=== PATIENT | female | born 1990 | race Caucasian/White ===

== ENCOUNTER → 2018-04-29 22:39 | Observation (INO) ==
--- NOTE | 2018-04-29 22:30 | OB/GYN Progress Note ---
Date of Encounter: 04/29/18 Time of Encounter: 22:28 - Assessment and Plan (1) 36 weeks gestation of Current Visit: Yes Status: Acute (2) Encounter for suspected PROM, with rupture of membranes not found Current Visit: Yes Status: Acute Speculum exam shows normal thick white/yellow discharge of . Ferning negative. Cervical exam unchanged from office exam. Patient discharged home with labor and when to return to triage precautions. Patient verbalizes understanding and is in agreement with plan Subjective - Subjective Interval history: 36+2 weeks gestation presents to triage triage with complaints of losing her mucous plug and a small amount of leaking of fluid, complains of contractions yesterday with some pelvic pressure today. Reports good movement, slight vaginal bleeding with loss of mucous plug no other heavy vaginal bleeding noted. Antepartum ROS: loss of fluid, vaginal bleeding, movement normal, contractions Objective - Vital Signs Vital Signs: Intake and Output 04/29/18 04/29/18 04/29/18 07:59 15:59 23:59 Other: Weight 78.018 kg Patient Weight 04/29/18 23:59 Weight 78.018 kg - Exam FHR: auscultation normal FHR comments: Baseline 130 Abdomen: Present: soft, gravid Cervical dilation: 250/-3
== END | disposition home or self-care (01) ==
LOC: 1NENULAB
PROVIDERS: ADMIT Advanced Practice Midwife; ATTEND Advanced Practice Midwife

== ENCOUNTER 2018-05-18 06:00 | Inpatient (IN) ==
[2018-05-18] MEDS ORDERED: *HR* Nalbuphine 10 MG/ML AMPUL IVP PRN (06:57)
[2018-05-18] MEDS ORDERED: Metoclopramide 10 MG/2 ML VIAL IVP PRN ×2 (06:57→18:46)
[2018-05-18] MEDS ORDERED: Famotidine 20 MG/2 ML VIAL IVP PRN (06:57)
[2018-05-18] MEDS ORDERED: Ondansetron 4 MG/2 ML VIAL IVP PRN ×2 (06:57→18:46)
[2018-05-18] MEDS ORDERED: Naloxone 0.4 MG/ML INJ IVP PRN (06:57)
[2018-05-18] MEDS ORDERED: Ringers Solution, Lactated 1,000 ML IVC SCH (07:00)
[2018-05-18] MEDS ORDERED: miSOPROStol 25 MCG TABLET VG PRN (07:02)
[2018-05-18] MEDS ORDERED: D5% in 0.45% NACL 1,000 ML IVC SCH (07:30)
[2018-05-18 07:45] LABS: Basophils % 0.4 %; Eosinophils # 0.4 K/mcL (0.0-0.6); Eosinophils % 4.4 %; Hematocrit 30.6 % (35.3-44.9); Hemoglobin 9.7 g/dL (11.5-15.4); Immature Granulocytes % 0.4 % (0-4); Lymphocytes # 2.1 K/mcL (0.6-4.6); Lymphocytes % 24.8 %; Mean Corpuscular HGB Conc 31.7 g/dL (31.6-35.5); Mean Corpuscular Hemoglobin 25.9 pg (28.0-33.3); Mean Corpuscular Volume 81.6 fL (83.0-100.0); Mean Platelet Volume 12.5 fL (9.4-12.4); Monocytes # 0.6 K/mcL (0.0-1.3); Monocytes % 6.8 %; Neutrophils # 5.3 K/mcL (1.6-8.9); Platelet Count 213 K/mcL (140-400); Red Blood Count 3.75 M/mcL (3.82-4.97); Red Cell Distribution Width 17.2 % (11.5-14.5); Segmented Neutrophils % 63.2 %
[2018-05-18 07:53] LABS: Amphetamine Screen,Urine Negative ng/mL (Cutoff=1000); Barbiturate Screen,Urine Negative ng/mL (Cutoff=200); Benzodiazepines Screen,Urine Negative ng/mL (Cutoff=200); Cannabinoid Screen,Urine Negative ng/mL (Cutoff = 50); Cocaine Screen,Urine Negative ng/mL (Cutoff= 300); Opiate Screen,Urine Negative ng/mL (Cutoff=300); Phencyclidine Screen,Urine Negative ng/mL (Cutoff=25)
--- NOTE | 2018-05-18 10:44 | Anesthesia Evaluation PreOp ---
Date of Encounter: 05/18/18 Time of Encounter: 08:12 - Past History Planned Operation: raiza Cardiac History: Denies any Significant Hx Pulmonary History: Denies Any Significant HX SMALL ENGINE TECHNICIAN History: Denies Any Significant HX Other Medical History: Other (Chronic anemia) Anesthesia History: No Prior Anesthetic Complications, Past Anesthesia : Yes (39 weeks, ) Alcohol Use: none Drug use: none Medications and Allergies Ferrous Sulfate 1 tab PO DAILY 02/15/18 [History] One Tablet 1 tab PO DAILY 02/15/18 [History] Folic Acid 1 tab PO DAILY 04/29/18 [History] Allergy/AdvReac Type Severity Reaction Status Date / Time Amoxicillin Allergy Rash Verified 02/15/18 23:14 Penicillins Allergy Rash Verified 02/15/18 23:14 - Meds/Allergy Pre-op Review Medications Reviewed: Yes Allergies Reviewed: Yes Beta Blockers on Current Med List: No Anesthesia Results - Labs 05/18/18 06:30 Anesthesia Exam O2 Sat Height 1.75 m Weight 79.7 kg Height: 69 Weight: 175 - HEENT Pupil (Motor): Pupils equal Mallampati: I Teeth: Normal Oral Opening: Greater than 3 - SMALL ENGINE TECHNICIAN LOC: Oriented SMALL ENGINE TECHNICIAN Motor: Normal RUE, Normal LUE, Normal RLE, Normal LLE, Normal Face SMALL ENGINE TECHNICIAN Sensory: Normal: RUE, LUE, RLE, LLE, Face - Cardiac Rhythm: Regular Murmur: None JVD: No Carotid Bruit: No - Pulmonary Breath Sounds: bilateral Clear Respiratory Effort: Symmetrical Anesthesia Assess/Plan ASA Score: 2 Modified [place] Scale for Level of Consciousness: Cooperative, oriented, and tranquil Anesthetic Plan: Regional Monitoring Plan: Standard Monitors
--- NOTE | 2018-05-18 10:48 | OB/GYN History & Physical ---
Date of Encounter: 05/18/18 Time of Encounter: 08:52 Assessment and Plan (1) 39 weeks gestation of Current visit: Yes Status: Acute Plan for induction of labor with cytotec NST reactive, FHR 140 bpm, moderate variablilty, no decelerations (2) Iron deficiency anemia during Current visit: Yes Status: Acute History of chronic iron deficiency anemia, baseline hgb 9-10 Hgb currently 9.7 Maternal blood type A+ Denies dizziness, weakness, presyncope, syncope History of Present Illness Chief complaint: Induction of Labor HPI: Ms. Diaz is a 27 year old female presenting for induction of labor at 39 weeks gestation with vertex presentation. Previous pregnancies resulted in term vaginal deliveries. First born has glutaric acidemia type 1, mom and father of that child are both PKU carriers, different father for the subsequent pregnancies. complicated by iron deficiency anemia on ferrous sulfate and former tobacco use. Mom denies headache, dizziness, vision changes, vagina l bleeding, rupture of membranes. Admits to occasional contractions and loss of mucus plug. Admits good movement. Maternal blood type A+ GBS negative HIV negative Treponema negative G/C negative Rubella, varicella immune Past Med Surg Social Fam HX - Past Medical History Source: patient Additional medical history: iron deficiency anemia. previous post hemorrhage Psychiatric history: no psych history - Past Surgical History Surgical History: non-contributory (tonsillectomy) - Social History Smoking Status: Former smoker Smokeless Tobacco Status: No Alcohol use: none Drug use: none Occupational status: employed Current living situation: Home - Independent Activity Level: Very active Recent Out of Country Travel Within the Last 8 Weeks: No Exposure or Possible Exposure to Illness During Travel: No - Family History Mother Living Status: Still Living Hx Family Cardiac Disorders: Yes (htn) Hx Family Respiratory Disorders: No Hx Family Cancer: No Hx Family GI Disorders: No Hx Family Endocrine Disorder: No Hx Family Neuromuscular Disorders: No Hx Family Neurologic Disorders: No Hx Family HEENT Disorders: No Hx Family Autoimmune Disorders: No Hx Family Medical Disorders: Yes (son has glutaric acidemia type 1) Obstetrical History - Pregnancies : 4 Para: 3 Term: 3 : 0 Ab's: 0 Livin - History/Complications History/Complications: Iron deficiency anemia Medications and Allergies Ferrous Sulfate 1 tab PO DAILY 02/15/18 [History] One Tablet 1 tab PO DAILY 02/15/18 [History] Folic Acid 1 tab PO DAILY 04/29/18 [History] Allergy/AdvReac Type Severity Reaction Status Date / Time Amoxicillin Allergy Rash Verified 02/15/18 23:14 Penicillins Allergy Rash Verified 02/15/18 23:14 Review of System OB All systems PM: reviewed and no additional remarkable complaints except as stated Exam - Constitutional Constitutional: well developed, well nourished, no acute distress - HEENT HEENT: Normocephaly, Mucus Membranes Moist - Neck Neck exam: full ROM - Lungs Respiratory exam: CTAB - Cardiovascular Cardiovascular exam: RRR, +S1, +S2 - Abdomen Abdomen: Present: bowel sounds normal, gravid, non tender - Extremities Extremities exam: full ROM, normal capillary refill, normal inspection, radial pulses palpable and symmetrical (trace edema) Deep Tendon Reflex Grade: 2+ Normal - Vagina Vagina: Present: normal moisture ( ) - Cervix Dilation: 4 Effacement: 60 Station: -1 Results Result Diagrams: 05/18/18 06:30 Abnormal lab results RBC 3.75 M/mcL (3.82-4.97) L 05/18/18 06:30 Hgb 9.7 g/dL (11.5-15.4) L 05/18/18 06:30 Hct 30.6 % (35.3-44.9) L 05/18/18 06:30 MCV 81.6 fL (83.0-100.0) L 05/18/18 06:30 MCH 25.9 pg (28.0-33.3) L 05/18/18 06:30 RDW 17.2 % (11.5-14.5) H 05/18/18 06:30 MPV 12.5 fL (9.4-12.4) H 05/18/18 06:30 All other labs normal.
[2018-05-18] MEDS ORDERED: *HR* FentaNYL (PF) 100 MCG/2 ML VIAL ONE ×2 (10:56→14:15)
[2018-05-18] MEDS ORDERED: Epidural Premix (fent/bupiv) 110 ML EP ONE (10:56)
[2018-05-18] MEDS ORDERED: Bupivacaine-MPF 0.25% 10 ML VIAL ONE (10:57)
[2018-05-18] MEDS ORDERED: Lidocaine 1% 20 ML MDV ONE (10:57)
[2018-05-18] MEDS ORDERED: Bupivacaine-MPF 0.25% 10 ML VIAL EP ONE (11:20)
[2018-05-18] MEDS ORDERED: EPHEDrine 50 MG/ML VIAL IVP PRN (11:20)
[2018-05-18] MEDS ORDERED: *HR* FentaNYL (PF) 100 MCG/2 ML VIAL EP ONE (11:20)
--- NOTE | 2018-05-18 11:23 | Anesthesia Procedures ---
Addendum entered and electronically signed by Tucker Smith CRNA 05/18/18 11:24: epidural end time 1110 Original Note: Date of Encounter: 05/18/18 Time of Encounter: 11:22 Procedures: Anesthesia - Epidural/Spinal Patient ID/Chart reviewed: Yes Patient examined: Yes OB Eval: : 4 OB Eval: Hx Para: 3 OB Eval: Contractions: Non-stressed pattern Consent Obtained: Yes Supplemental Oxygen: None/Room Air Site Prep: Aseptic Technique Patient position: upright Local Anesthetic: Lidocaine 1% Amount of Local Anesthetic used: 3 Touhy Needle Gauge: 18 Touhy Needle Depth (cm): 4 Catheter Depth at Skin (cm): 12 Test Dose (1.5% Lido + Epi): Volume given (mls): 3 Test Dose Result: Negative Loading Dose: 0.25% Marcaine (mls): 7 Loading Dose: Fentanyl (mcg): 100 Loading Dose Administered: Thru Touhy Needle Infusion Med: 0.125% Bupivacaine w/ 2 mcg/ml Fentanyl Infusion Rate (mls/hr): [address]: Tegaderm Interspace Used: L3-L4 Loss of Resistance (TAMMIE): Yes Blood: No CSF: No Paresthesia: No
[2018-05-18] MEDS ORDERED: Epidural Premix (fent/bupiv) 110 ML EP SCH (11:30)
[2018-05-18] MEDS ORDERED: *HR* Propofol 200 MG/20 ML VIAL IVP ONE (14:14)
[2018-05-18] MEDS ORDERED: *HR* Phenylephrine 10 MG/ML VIAL ONE (14:15)
[2018-05-18] MEDS ORDERED: *HR* Morphine Sulfate/PF 10 MG/10 ML AMPUL ONE (14:18)
[2018-05-18] MEDS ORDERED: Clindamycin 900 MG/50 ML 900 MG/50 ML IV.SOLN IVPB ONE (14:19)
[2018-05-18] MEDS ORDERED: Ringers Solution, Lactated 1,000 ML ONE (14:20)
[2018-05-18] MEDS ORDERED: *HR* Oxytocin 10 UNIT/ML VIAL IM ONE (14:22)
[2018-05-18] MEDS ORDERED: Ketorolac 30 MG/ML VIAL IVP ONE (14:39)
--- NOTE | 2018-05-18 14:58 | Event Note ---
Date of Encounter: 05/18/18 Time of Encounter: 14:00 CNM entered patient room to AROM patient. Risks and benefits were discussed and patient verbally consented to AROM. Immediately after AROM with clear fluid, umbilical cord was felt around head. RN notified to call Dr. Stone for stat section. Dr. Stone immediately at bedside and care turned over at that time.
[2018-05-18] MEDS ORDERED: Oxytocin 20 units/ LR 1000 mL 20 UNIT/1,000 ML BAG IVC ONE ×2 (15:13→17:47)
--- NOTE | 2018-05-18 15:23 | OB/GYN Procedure Note ---
Addendum entered and electronically signed by Lu Briseno 05/19/18 08:54: Original Note: Section - Date of procedure: 05/18/18 Preop diagnosis: category 3 FHT tracing, other (cord prolapse) Post-op diagnosis: same Procedure: primary low transverse Surgeon: Wilner Garcia Blood Loss: 400 Was there an public aid eligibility assistant present: No Anesthesiologist: Ayanna España Anesthesia Type: Epidural section complications: none Disposition: PACU Specimens: Placenta - (s) A Delivery Date: 05/18/18 Infant Delivery Time: 14:16 Presentation: vertex Gender: Male Viability: Viable Pounds: 6 Ounces: 12 at 1 minute: 8 at 5 minutes: 9 Specimens collected: cord blood Placenta: complete extraction Cord: nuchal cord - Narrative Narrative: Upon AROM, compound presentation with hand and cord were noted. Patient was taken immediately to the operating room. She was prepped and draped in usual manner. After satisfactory anesthesia was achieved, the abdomen was entered through standard Maylard incision. The Luba retractor was placed. Peritoneum overlying the lower uterine segment was incised in U-shaped fashion. Uterine cavity was entered sharply. With fundal pressure the head was delivered. The torso was delivered the umbilical cord doubly clamped and cut and the was handed to nursery staff for further evaluation. Placenta was removed. Uterus closed with 0 Monocryl. After assurance assurance of hemostasis the retractor was removed. X-ray was obtained which excluded any instruments, needles, or laps or Ray-Jorge's. After assurance hemostasis, the abdomen was closed standard fashion using 0 PDS on the fascia and 3-0 Monocryl skin. Sterile dressing was applied. Patient did well was taken to recovery in satisfactory condition. Counts were correct.
[2018-05-18] MEDS ORDERED: *HR* HYDROmorphone (PF) 1 MG/ML SYRINGE IM ONE (15:58)
[2018-05-18] MEDS ORDERED: *HR* HYDROmorphone (PF) 1 MG/ML SYRINGE IVP ONE (17:33)
[2018-05-18] MEDS ORDERED: *HR* OxyCODONE/APAP 5/325 TABLET PO PRN (18:46)
[2018-05-18] MEDS ORDERED: Sennosides 8.6 MG TABLET PO PRN (18:46)
[2018-05-18] MEDS ORDERED: Oxytocin 20 units/ LR 1000 mL 20 UNIT/1,000 ML BAG IVC SCH (18:46)
[2018-05-18] MEDS: Ibuprofen 600 MG TABLET PO PRN (19:01)
--- NOTE | 2018-05-18 19:48 | Anesthesia Evaluation Post Op ---
Date of Encounter: 05/18/18 Time of Encounter: 18:05 - Vital Signs Vital Signs: Vital Signs/O2 Sat, Most Current Temp Pulse Resp BP Pulse Ox 97.8 F 78 16 117/72 96 05/18/18 18:50 05/18/18 18:50 05/18/18 18:50 05/18/18 18:50 05/18/18 18:50 - Lungs Lungs: Clear Ascult./Percussion - Airway Airway: Non-obstructed - Cardiovascular Regular Rate - Mental Status Mental Status: Alert & Oriented, Answers Appropriately - Pain Pain Scale: 2 (2 at rest, 8 when fundus is massaged) - Nausea Vomiting Nausea Vomiting: Not Present - Hydration Hydration: Ice chips, Xiong catheter
[2018-05-18] MEDS: Clindamycin 300 MG in D5% in Water 50 ML IVPB SCH (20:54)
[2018-05-19] MEDS: Clindamycin 300 MG in D5% in Water 50 ML IVPB SCH ×2 (01:36→08:18)
[2018-05-19] MEDS: Ibuprofen 600 MG TABLET PO PRN ×4 (01:54→23:38)
[2018-05-19] MEDS: Prenatal Vit/FA 1 EACH TABLET PO SCH (08:20)
[2018-05-19] MEDS: Folic Acid 1 MG TABLET PO SCH (08:20)
[2018-05-19] MEDS ORDERED: NON-FORMULARY MEDICATION 1 EACH EACH (Prenatal One Tablet 1 TAB) PO SCH (09:00)
[2018-05-19] MEDS ORDERED: NON-FORMULARY MEDICATION 1 EACH EACH (Ferrous Sulfate 1 TAB) PO SCH (09:00)
--- NOTE | 2018-05-19 09:01 | OB/GYN Progress Note ---
Date of Encounter: 05/19/18 Time of Encounter: 08:58 - Assessment and Plan (1) Status post delivery Current Visit: Yes Status: Acute Continue routine post-op/ care Anticipate discharge home tomorrow (2) Anemia complicating the puerperium Current Visit: Yes Status: Acute Subjective - Subjective Principal diagnosis: Primary C/S Interval history: S/P Primary C/S Day 1 VSS Pain well controlled Lochia light and without clots Voiding without difficulty Tolerating regular diet and passing flatus Bottle feeding without difficulty Discharge home tomorrow Patient reports: appetite normal, voiding normally, pain well controlled, ambulating normally Worth: doing well, bottle feeding Objective - Vital Signs Latest vital signs: Vital Signs Temp Pulse Resp BP Pulse Ox 05/19/18 05:45 98.1 F 67 16 100/67 97 05/18/18 22:45 98.3 F 70 14 115/72 98 05/18/18 21:45 98.3 F 77 16 110/66 98 05/18/18 20:45 98.3 F 65 16 113/70 98 05/18/18 20:15 97.7 F 70 16 112/73 97 05/18/18 19:45 97.6 F 62 16 122/72 97 05/18/18 18:50 97.8 F 78 16 117/72 96 Intake and Output 05/18/18 05/19/18 05/19/18 23:59 07:59 15:59 Intake Total 52 / 52 Output Total 1974 750 / 750 Balance -1923 / -1923 -698 / -698 Intake: IV Fluids 52 / 52 Cleocin 300 MG In Dextrose 5% / 52 50 ML @ 50 mls/hr IVPB Q8HR [facility] Rx#:[id number] Output: Urine 100 / 100 Catheter 1974 650 / 650 Other: Weight 79 kg 76.521 kg Patient Weight 05/19/18 23:59 Weight 76.521 kg - Exam Lungs: bilateral: normal Chest: Normal S1, Normal S2 Extremities: Present: normal Abdomen: Present: soft, gravid Incision: Present: normal, dry, intact Uterus: Present: normal, firm Fundal Height: 0 (@U) - Labs Labs: Laboratory Results - last 24 hr 05/18/18 07:15 Hep Bs Antigen Nonreactive
[2018-05-19] MEDS: Simethicone 80 MG TAB.CHEW PO PRN ×3 (10:03→23:38)
[2018-05-20] MEDS: Ibuprofen 600 MG TABLET PO PRN (05:26)
[2018-05-20 07:18] LABS: Basophils % 0.3 %; Eosinophils # 0.3 K/mcL (0.0-0.6); Eosinophils % 4.3 %; Hematocrit 25.5 % (35.3-44.9); Immature Granulocytes % 0.3 % (0-4); Lymphocytes # 1.7 K/mcL (0.6-4.6); Lymphocytes % 25.4 %; Mean Corpuscular HGB Conc 31.8 g/dL (31.6-35.5); Mean Corpuscular Hemoglobin 26.2 pg (28.0-33.3); Mean Corpuscular Volume 82.5 fL (83.0-100.0); Monocytes # 0.5 K/mcL (0.0-1.3); Monocytes % 6.8 %; Neutrophils # 4.2 K/mcL (1.6-8.9); Platelet Count 180 K/mcL (140-400); Red Blood Count 3.09 M/mcL (3.82-4.97); Red Cell Distribution Width 17.6 % (11.5-14.5); Segmented Neutrophils % 62.9 %
[2018-05-20 07:25] LABS: Hemoglobin 8.1 g/dL (11.5-15.4)
[2018-05-20 08:38] VITALS: BP 104/69
--- NOTE | 2018-05-20 09:39 | Discharge Summary ---
Date of Encounter: 05/20/18 Time of Encounter: 09:35 - Discharge Diagnosis (1) Anemia complicating the puerperium Priority: Secondary Status: Acute Comments: Continue iron supplementation twice a day for 2 months (2) Status post delivery Priority: Primary Status: Acute Comments: Feeling well-some sadness and remorse regarding having had a and the limiting aspect of her independence in recovery - we discussed ways to cope and she agrees to let us know if she feels she is not coping well Tolerating regular diet Lochia light Voiding independently Passing flatus, no BM yet Ambulating independently Vital signs stable Discharge home today - Discharge Medications Prescriptions: OxyCODONE/APAP 5/325 [Percocet 5/325 MG] 1 each PO Q4HR PRN 5 Days #30 tablet PRN Reason: Moderate pain 4-6 Ibuprofen [Motrin] 600 mg PO Q6HR PRN #30 tablet PRN Reason: Cramping Docusate [Colace] 100 mg PO BID #60 capsule Ferrous Sulfate 325 mg PO BIDWM #60 tablet Home Medications: Ferrous Sulfate 1 tab PO DAILY 02/15/18 [History] One Tablet 1 tab PO DAILY 02/15/18 [History] Docusate [Colace] 100 mg PO BID #60 capsule 05/20/18 [Rx] Ferrous Sulfate 325 mg PO BIDWM #60 tablet 05/20/18 [Rx] Ibuprofen [Motrin] 600 mg PO Q6HR PRN #30 tablet 05/20/18 [Rx] OxyCODONE/APAP 5/325 [Percocet 5/325 MG] 1 each PO Q4HR PRN 5 Days #30 tablet 05/20/18 [Rx] Allergies/Adverse Reactions: Allergy/AdvReac Type Severity Reaction Status Date / Time Amoxicillin Allergy Rash Verified 02/15/18 23:14 Penicillins Allergy Rash Verified 02/15/18 23:14 Data Procedures and tests throughout hospitalization: Laboratory Tests 05/18/18 05/18/18 05/18/18 06:30 06:30 07:15 WBC 8.4 RBC 3.75 L Hgb 9.7 L Hct 30.6 L MCV 81.6 L MCH 25.9 L MCHC 31.7 RDW 17.2 H Plt Count 213 MPV 12.5 H Immature Gran % 0.4 Seg Neutrophils % 63.2 Lymphocytes % 24.8 Monocytes % 6.8 Eosinophils % 4.4 Basophils % 0.4 Neutrophils # 5.3 Lymphocytes # 2.1 Monocytes # 0.6 Eosinophils # 0.4 Basophils # 0.0 Urine Opiates Screen Negative Ur Barbiturates Screen Negative Ur Phencyclidine Scrn Negative Ur Amphetamines Screen Negative U Benzodiazepines Scrn Negative Urine Cocaine Screen Negative U Marijuana (THC) Screen Negative Ur Drug Screen Interp See Below Hep Bs Antigen Nonreactive 05/20/18 07:07 WBC 6.7 RBC 3.09 L Hgb 8.1 L D Hct 25.5 L MCV 82.5 L MCH 26.2 L MCHC 31.8 RDW 17.6 H Plt Count 180 MPV 12.0 Immature Gran % 0.3 Seg Neutrophils % 62.9 Lymphocytes % 25.4 Monocytes % 6.8 Eosinophils % 4.3 Basophils % 0.3 Neutrophils # 4.2 Lymphocytes # 1.7 Monocytes # 0.5 Eosinophils # 0.3 Basophils # 0.0 Urine Opiates Screen Ur Barbiturates Screen Ur Phencyclidine Scrn Ur Amphetamines Screen U Benzodiazepines Scrn Urine Cocaine Screen U Marijuana (THC) Screen Ur Drug Screen Interp Hep Bs Antigen Labs on day of discharge: Labs from last 24 hours 05/20/18 07:07 WBC 6.7 RBC 3.09 L Hgb 8.1 L D Hct 25.5 L MCV 82.5 L MCH 26.2 L MCHC 31.8 RDW 17.6 H Plt Count 180 MPV 12.0 Immature Gran % 0.3 Seg Neutrophils % 62.9 Lymphocytes % 25.4 Monocytes % 6.8 Eosinophils % 4.3 Basophils % 0.3 Neutrophils # 4.2 Lymphocytes # 1.7 Monocytes # 0.5 Eosinophils # 0.3 Basophils # 0.0 - Impressions ITS Impressions KUB X-Ray 05/18/18 14:20 IMPRESSION: Unremarkable intraoperative abdominal x-ray. No radiopaque foreign body projects over the [id number]. D/ / Jessica Godinez MD / Jessica Godinez MD Interpreting Provider: Jessica Godinez MD Date of admission: 05/18/18 06:22 Primary care physician: Yessi East Discharging clinician: Marielos Lee Anticipated date of discharge: 05/20/18 - Patient Status Disposition: Home, Self-Care Condition: Good Functional capacity at discharge: independent ambulation Overall status at discharge: patient is progressing back to baseline - Discharge Instructions Follow Up With: Yessi East [Primary Care Provider] - Wilner Stone MD [Partnered Physician] - - Diet and Activity Activity: increase activity as tolerated Diet: regular diet Hospital Course Procedures: s/p PLTCS Reason for admission: induction of labor, IUP at term Delivery: section Episiotomy: none Laceration: none Other procedures: none complications: none Discharge diagnosis: IUP at term delivered [place] baby: male Time Attestation: Total time spent providing and/or coordinating discharge services: Time Spent: Less than 30 minutes - VTE Documentation of Mechanical Device: Intermittent pneumatic compression device Exam - Constitutional Vitals: Temp Pulse Resp BP Pulse Ox 98.2 F 67 12 104/69 96 05/20/18 08:20 05/20/18 08:20 05/20/18 08:20 05/20/18 08:20 05/20/18 08:20 General appearance IM: A&O X 3 - Respiratory Respiratory exam: Present: CTAB - Cardiovascular Cardiovascular exam IM: Present: RRR, +S1, +S2 - GI/Abdominal GI/Abdominal exam IM: normal bowel sounds, no peritoneal signs Incision: normal, dry, dressed - Rectal Rectal exam: deferred - Uterine Tone: Firm Uterus Position: 1 Finger Below Umbilicus, Midline - Extremities Exam Extremities exam IM: Present: normal capillary refill, normal inspection, radial pulses palpable and symmetrical - Neurological Exam Neurological exam: alert, CN II-XII intact, normal gait, oriented X3, reflexes normal, no focal deficits, strengths equal and symetr throughout - Psychiatric Additional comments: Patient denies history of anxiety and depression. Signs and symptoms of depression discussed and patient verbalizes understanding of when to seek help. - Skin Additional comments: Breasts: Nipples soft, nontender
[2018-05-20] MEDS: Prenatal Vit/FA 1 EACH TABLET PO SCH (10:50)
[2018-05-20] MEDS: Folic Acid 1 MG TABLET PO SCH (10:50)
== END 2018-05-20 13:15 | disposition home or self-care (01) | DRG 540 ==
LOC: 1NENULAB 06:22 → 1NENUOBS 18:51
PROVIDERS: ADMIT Obstetrics & Gynecology; ATTEND Obstetrics & Gynecology